=== PATIENT | male | born 1970 | race Caucasian/White ===

== ENCOUNTER 2017-04-14 22:27 | Inpatient (IN) | payer BC ==
[~2017-04-14] VITALS: Ht 167.6 cm; Wt 75.3 kg
[2017-04-14] MEDS ORDERED: AMIODARONE HCL IV 900 MG in IV DEXTROSE 5% 500 ML IV ONE (22:45)
[2017-04-14] MEDS ORDERED: AMIODARONE HCL IV 150 MG in IV DEXTROSE 5% 100 ML IV ONE (22:45)
[2017-04-14] MEDS ORDERED: NITROGLYCERIN OINT 1 GM PACKET TP ONE (22:45)
[2017-04-14] MEDS ORDERED: LORAZEPAM 2 MG/1 ML VIAL IV ONE (22:45)
[2017-04-14] MEDS ORDERED: NITROGLYCERIN 0.4 MG/TAB BOTTLE SL ONE (22:45)
[2017-04-14] MEDS ORDERED: ASPIRIN 81 MG TAB.CHEW PO ONE (22:45)
[2017-04-14] MEDS ORDERED: DILT180C66 PO (22:46)
[2017-04-14] MEDS ORDERED: OMEP20TA20 PO (22:46)
[2017-04-14] MEDS ORDERED: METO-302 PO (22:46)
[2017-04-14 22:53] LABS: BASOPHILS # (AUTO) 0.1 K/uL (0.0-8.0); BASOPHILS % (AUTO) 1.1 % (0.0-2.0); EOSINOPHILS # (AUTO) 0.3 K/uL (0.0-0.7); EOSINOPHILS % (AUTO) 3.4 % (0.0-7.0); HEMATOCRIT 46.3 % (40-50); HEMOGLOBIN 15.7 G/DL (14.0-18.0); LYMPHOCYTES # (AUTO) 3.3 K/UL (0.8-4.8); MEAN CORPUSCULAR HEMOGLOBIN 28.7 UUG (27.0-31.0); MEAN CORPUSCULAR HGB CONC 34 g/dL (32.0-37.0); MEAN CORPUSCULAR VOLUME 84.5 FL (82.0-92.0); MONOCYTES # (AUTO) 0.7 K/UL (0.1-1.30); MONOCYTES % (AUTO) 8.9 % (0.0-11.0); NEUTROPHILS # (AUTO) 3.3 K/UL (1.8-8.9); NEUTROPHILS % (AUTO) 42.6 % (38.5-71.5); PLATELET COUNT (AUTO) 237 K/UL (150-450); RED BLOOD CELL COUNT(AUTO) 5.48 MIL/UL (4.7-6.1); WHITE BLOOD COUNT (AUTO) 7.7 K/UL (4.0-11.2)
[2017-04-14 22:56] LABS: CREATININE 1.5 mg/dL (0.6-1.3)
[2017-04-14] MEDS ORDERED: ASPIRIN 81 MG TAB.CHEW ONE (22:56)
[2017-04-14] MEDS ORDERED: AMIODARONE HCL 150 MG/3 ML VIAL IV ONE ×2 (22:56→23:17)
[2017-04-14] MEDS ORDERED: LORAZEPAM 2 MG/1 ML VIAL ONE (22:57)
[2017-04-14 23:08] LABS: BILIRUBIN,DIRECT 0.2 mg/dL (0.0-0.2); BILIRUBIN,TOTAL 1.5 mg/dL (0.2-1.0); TOTAL PROTEIN, SERUM 7.3 g/dL (6.4-8.2)
[2017-04-14] MEDS ORDERED: IV NORMAL SALINE 500 ML IV ONE (23:14)
--- NOTE | 2017-04-14 23:18 | NUR ---
Patient in restroom accompanied by . patient educated on risks of ambulating to the restroom for bowel movement at this time, in his current condition. patient states he will go to the bathroom for bowel movement even if it is not advised.
--- NOTE | 2017-04-14 23:46 | NUR ---
Pt. admitted to [facility] , under care of Dr. Flores. Dx: A-Fib with RVR. Report given to Marta RN @ 2340. Room 216 assigned @ 2340. Belongs List completed
[2017-04-15] VITALS: BP 104/63
--- NOTE | 2017-04-15 00:10 | NUR ---
nsg: pt received a/o x 4 fr er with dx of afib with rapid ventricular rate. receiving amiodarone drip 1mg/min per unit protocol. v/s stable. denies chest discomfort. at the bedside.
[2017-04-15] MEDS ORDERED: HYDROCODONE/APAP 5-325MG TABLET PO PRN (00:30)
[2017-04-15] MEDS ORDERED: ACETAMINOPHEN 325 MG TABLET PO PRN (00:30)
[2017-04-15] MEDS ORDERED: ONDANSETRON 4 MG/2 ML VIAL IV PRN (00:30)
[2017-04-15] MEDS ORDERED: ZOLPIDEM 5 MG TABLET PO PRN (00:30)
[2017-04-15] MEDS ORDERED: AMIODARONE HCL IV 900 MG in IV DEXTROSE 5% 482 ML IV PRN (00:30)
--- NOTE | 2017-04-15 01:00 | NUR ---
nsg: pt comfortable sleeping. no acute distress noted. cont to monitor. tele, afib with hr 110-113.
[2017-04-15 04:00] VITALS: BP 112/79
[2017-04-15] MEDS ORDERED: LORAZEPAM 2 MG/1 ML VIAL IV ONE (05:15)
--- NOTE | 2017-04-15 06:17 | NUR ---
nsg: pt awake, has severe anxiety, worried about his condition. medicated with ativan 1mg ivp x 1. v/s stable. tele, afib with hr 90's. cont to monitor.
[2017-04-15 06:29] LABS: BASOPHILS # (AUTO) 0.1 K/uL (0.0-8.0); BASOPHILS % (AUTO) 0.8 % (0.0-2.0); EOSINOPHILS # (AUTO) 0.3 K/uL (0.0-0.7); EOSINOPHILS % (AUTO) 3.6 % (0.0-7.0); HEMATOCRIT 44.8 % (40-50); HEMOGLOBIN 14.9 G/DL (14.0-18.0); LYMPHOCYTES # (AUTO) 2.4 K/UL (0.8-4.8); LYMPHOCYTES % (AUTO) 32.8 % (20.5-51.5); MEAN CORPUSCULAR HEMOGLOBIN 28.5 UUG (27.0-31.0); MEAN CORPUSCULAR HGB CONC 33 g/dL (32.0-37.0); MEAN CORPUSCULAR VOLUME 85.5 FL (82.0-92.0); MONOCYTES # (AUTO) 0.5 K/UL (0.1-1.30); MONOCYTES % (AUTO) 7.4 % (0.0-11.0); NEUTROPHILS # (AUTO) 4.1 K/UL (1.8-8.9); NEUTROPHILS % (AUTO) 55.4 % (38.5-71.5); PLATELET COUNT (AUTO) 242 K/UL (150-450); RED BLOOD CELL COUNT(AUTO) 5.24 MIL/UL (4.7-6.1); WHITE BLOOD COUNT (AUTO) 7.4 K/UL (4.0-11.2)
[2017-04-15] MEDS ORDERED: PANTOPRAZOLE SODIUM 40 MG TABLET.DR PO SCH (07:00)
[2017-04-15 07:07] LABS: THYROID STIMULATING HORMONE 2.803 mIU/mL (0.358-3.740)
[2017-04-15 07:11] LABS: BILIRUBIN,TOTAL 1.4 mg/dL (0.2-1.0); PHOSPHOROUS 3.4 mg/dL (2.5-4.9); POTASSIUM 3.8 mmol/L (3.5-5.1); TOTAL PROTEIN, SERUM 6.6 g/dL (6.4-8.2)
--- NOTE | 2017-04-15 07:15 | NUR ---
PATIENT NOTED RESTING IN BED WITH NO SIGNS OF DISTRESS OR PAIN. ON AMIODARONE DRIP FOR RVR, CONTROLLED AFIB AT A RATE OF 76-90/MIN ON MONITOR. CLOSELY MONITORED
[2017-04-15 08:09] VITALS: BP 111/68
[2017-04-15] MEDS ORDERED: METOPROLOL TARTRATE 25 MG TABLET PO SCH (09:00)
[2017-04-15] MEDS ORDERED: ENOXAPARIN SODIUM 80 MG/0.8 ML DISP.SYRIN SQ SCH (09:00)
[2017-04-15] MEDS ORDERED: DILTIAZEM HCL CD 180 MG CAP.SR.24H PO SCH (10:30)
[2017-04-15] MEDS ORDERED: POTASSIUM CHLORIDE 20 MEQ TAB.PRT.SR PO ONE (10:45)
[2017-04-15 11:23] VITALS: BP 129/85
--- NOTE | 2017-04-15 11:41 | NUR ---
PT RESTING IN BED. DENIES ANY CHEST PAIN, NO SIGNS OF RESPIRATORY DISTRESS, ON ROOM AIR. CONTINUE ON AMIODARONE DRIP PER PROTOCOL. K- DUR AND LOPRESSOR ORDER FROM DR. ANDERSON GIVEN. PATIENT REMAINS A FIB CONTROLLED AND UNCONTROLLED FROM 80 TO 116.
--- NOTE | 2017-04-15 15:30 | NUR ---
SEEN BY DR. ANDERSON SPOKE WITH PT'S [employer] OFFICER FROM [facility] SEE NOTES. PT REMAINED CONTROLLED A. FIB ON AMIODARONE IV DRIP.
[2017-04-15 16:17] VITALS: BP 110/72
--- NOTE | 2017-04-15 17:10 | NUR ---
TRIED TO REACH DR. REYES ABOUT PT STATUS AND SAID DR. WELLER WILL BE MAKING ROUNDS SOON POSSIBLE. PT NOW IN SINUS RHYTHM AT A RATE OF 80 TO 85 CONTINUE WITH AMIODARONE DRIP PER DR. REYES AND PT REMAINS ASYMPTOMATIC.
[2017-04-15] MEDS ORDERED: ATOR20TA PO (18:31)
--- NOTE | 2017-04-15 19:30 | NUR ---
PT RECEIVED IN BED, AWAKE. A/OX4. ABLE TO MAKE NEEDS KNOWN. V/S STABLE. IN NO ACUTE DISTRESS. NO C/O PAIN. CONT ON TELE. PT WAITING TO TALK TO AND READY FOR D/C. SAFETY MEASURES IMPLEMENTED. CALL LIGHT WITHIN REACH.
--- NOTE | 2017-04-15 20:00 | NUR ---
PT READY FOR DISCHARGE. D/C PAPERWORK SIGNED. BELONGINGS LIST SIGNED. IV D/C. PT IN STABLE CONDITION.
[2017-04-15] MEDS ORDERED: ATORVASTATIN 20 MG TABLET PO SCH (21:00)
== END 2017-04-15 20:07 | disposition home or self-care (01) | DRG 308 ==
LOC: ER 22:28 → DOU 23:44 → TELE-TD 04-15 00:02
PROVIDERS: ADMIT Internal Medicine; ATTEND Internal Medicine
DX: I48.91 Unspecified atrial fibrillation (principal); N17.0 Acute kidney failure with tubular necrosis; E78.5 Hyperlipidemia, unspecified; G47.33 Obstructive sleep apnea (adult) (pediatric); I48.0 Paroxysmal atrial fibrillation; K21.9 Gastro-esophageal reflux disease without esophagitis; F41.9 Anxiety disorder, unspecified; I34.1 Nonrheumatic mitral (valve) prolapse; E80.4 Gilbert syndrome; Z88.0 Allergy status to penicillin
CPT/HCPCS: 36415; 70030-TC; 71010; 83735; 84100; 84443; 85025; 85730; 93005; 93307; A4663; J0282; J1650; J2060; J7060

== ENCOUNTER 2020-05-09 05:54 | Emergency (ER) | payer BC ==
[~2020-05-09] VITALS: Ht 167.6 cm; Wt 73.0 kg
[~2020-05-09 05:54] MED LIST: ATOR20TA PO; DILT180C66 PO; METO-356 PO; OMEP20TA20 PO
[2020-05-09] MEDS ORDERED: ROSU10TA2 PO (06:01)
[2020-05-09] MEDS ORDERED: ALPR0.5T PO (06:01)
--- NOTE | 2020-05-09 06:05 | NUR ---
Patient walked into ER c/o palpiation that started about 1hr TAPE SEWER. Patient states he got up to use restroom when palpitation started. Denies CP,SOB. Patient took xanax TAPE SEWER for anxiety.
[2020-05-09] MEDS: DILTIAZEM HCL 25 MG IV IV ONE (06:18)
[2020-05-09] MEDS ORDERED: DILTIAZEM HCL 25 MG IV ONE (06:19)
[2020-05-09] MEDS: IV NORMAL SALINE 1000 ML BAG IV ONE (06:20)
[2020-05-09 06:35] LABS: BASOPHILS # (AUTO) 0.1 K/uL (0.0-8.0); BASOPHILS % (AUTO) 0.9 % (0.0-2.0); EOSINOPHILS # (AUTO) 0.3 K/uL (0.0-0.7); HEMATOCRIT 45.2 % (36.7-47.1); HEMOGLOBIN 15.7 g/dL (12.5-16.3); LYMPHOCYTES # (AUTO) 2.2 K/uL (20.0-40.0); LYMPHOCYTES % (AUTO) 32.5 % (20.5-51.5); MEAN CORPUSCULAR HEMOGLOBIN 29.6 uug (23.8-33.4); MEAN CORPUSCULAR HGB CONC 35 g/dL (32.5-36.3); MEAN CORPUSCULAR VOLUME 85.2 fL (73.0-96.2); MONOCYTES # (AUTO) 0.6 K/uL (2.0-10.0); MONOCYTES % (AUTO) 8.6 % (0.0-11.0); NEUTROPHILS # (AUTO) 3.5 K/uL (1.8-8.9); PLATELET COUNT (AUTO) 251 K/uL (152-348); RED BLOOD CELL COUNT(AUTO) 5.31 MIL/uL (4.06-5.63); WHITE BLOOD COUNT (AUTO) 6.7 K/uL (3.6-10.2)
[2020-05-09 06:42] LABS: CREATININE 1.3 mg/dL (0.6-1.3); POTASSIUM 3.5 mmol/L (3.5-5.1)
[2020-05-09 06:53] VITALS: BP 123/73
[2020-05-09] MEDS: ASPIRIN 325 MG TABLET PO ONE (06:53)
[2020-05-09] MEDS: DILTIAZEM HCL 60 MG TABLET PO ONE (06:53)
[2020-05-09] MEDS ORDERED: ASPIRIN 325 MG TABLET ONE (06:53)
[2020-05-09] MEDS ORDERED: DILTIAZEM HCL 60 MG TABLET ONE (06:54)
[2020-05-09 06:55] LABS: BILIRUBIN,DIRECT 0.3 mg/dL (0.0-0.2); BILIRUBIN,TOTAL 1.4 mg/dL (0.2-1.0); TOTAL PROTEIN, SERUM 7.1 g/dL (6.4-8.2)
[2020-05-09 07:06] LABS: *BILIRUBIN,URIN NEGATIVE (NEGATIVE); *BLOOD, URINE TRACE (NEGATIVE); *CLARITY,URINE CLEAR (CLEAR); *COLOR,URINE YELLOW (YELLOW); *KETONES,URINE NEGATIVE (NEGATIVE); *UROBILINOGEN,URINE 0.2 E.U./dl (NORMAL); LEUKOCYTE ESTERASE ,URINE NEGATIVE (NEGATIVE); NITRITE, URINE NEGATIVE (NEGATIVE); PH,URINE 5.5 (5.0-8.0); UGLUCOSE NEGATIVE (NEGATIVE)
[2020-05-09 07:11] LABS: THYROID STIMULATING HORMONE 2.927 mIU/mL (0.358-3.740)
[2020-05-09 07:14] LABS: PHOSPHOROUS 2.7 mg/dL (2.5-4.9)
[2020-05-09 07:14] LABS: *AMPHETAMINE, URINE NEGATIVE (NEGATIVE); *BARBITURATE, URINE NEGATIVE (NEGATIVE); *CANNABINOID, URINE NEGATIVE (NEGATIVE); *COCCAINE, URINE NEGATIVE (NEGATIVE); *OPIATE, URINE NEGATIVE (NEGATIVE); *PHENCYCLIDINE SCREEN,URINE NEGATIVE (NEGATIVE)
[2020-05-09 07:15] LABS: ETHANOL < 3 MG/DL (0-0); MAGNESIUM 2.2 mg/dL (1.8-2.4)
[2020-05-09] MEDS: ONDANSETRON 4 MG/2 ML VIAL IV ONE (07:48)
[2020-05-09] MEDS ORDERED: ONDANSETRON 4 MG/2 ML VIAL ONE (07:49)
[2020-05-09] MEDS ORDERED: LORAZEPAM 2 MG/1 ML VIAL ONE (07:50)
[2020-05-09] MEDS: LORAZEPAM 2 MG/1 ML VIAL IV ONE (07:51)
--- NOTE | 2020-05-09 08:10 | NUR ---
Pt resting with NAD noted. Called tele floor for bed assignement, [facility] called for admission.
[2020-05-09] MEDS ORDERED: IV NS 1000 ML 1,000 ML IV PRN (08:35)
[2020-05-09 08:38] LABS: RBC,URINE 0-3 /HPF (0-3); WBC,URINE 0-3 /HPF (0-3)
[2020-05-09 08:39] LABS: BACTERIA,URINE NONE SEEN /HPF (NONE SEEN); SQUAMOUS EPITHELIAL CELL,UR NONE SEEN /HPF (NONE SEEN)
[2020-05-09] MEDS ORDERED: ONDANSETRON 4 MG/2 ML VIAL IV PRN (08:45)
[2020-05-09] MEDS ORDERED: MAG HYDROX/AL HYDROX/SIMETH 30 ML LIQUID UDC PO PRN (08:45)
[2020-05-09] MEDS ORDERED: MORPHINE SULFATE 2 MG/1 ML DISP.SYRIN IV PRN (08:45)
[2020-05-09] MEDS ORDERED: ACETAMINOPHEN 325 MG TABLET PO PRN (08:45)
[2020-05-09] MEDS ORDERED: ALPRAZOLAM 0.5 MG TABLET PO SCH (08:45)
[2020-05-09] MEDS ORDERED: DOCUSATE SODIUM 100 MG CAPSULE PO PRN (08:45)
[2020-05-09] MEDS ORDERED: NITROGLYCERIN OINT 1 GM PACKET TP PRN (08:45)
[2020-05-09] MEDS ORDERED: ASPIRIN 81 MG TAB.CHEW PO SCH (09:00)
--- NOTE | 2020-05-09 09:20 | NUR ---
Pt states he is concerned about his insurance coverage, pt spoke with ER admitting rep. Pt states he wants to call and speak with his insurance before being transfered to tele floor.
--- NOTE | 2020-05-09 10:00 | NUR ---
Pt states he is still in the process of deciding if he wants to be admitted here or sign out AMA. NAD noted.
--- NOTE | 2020-05-09 10:30 | NUR ---
ER admitting Rep spoke with pt again to clearify his coverage, pt states he still needs a few mins to decide.
--- NOTE | 2020-05-09 10:59 | NUR ---
GLEN WELLER MD AT BEDSIDE SPEAKING WITH THE PT.
--- NOTE | 2020-05-09 11:22 | NUR ---
IV removed. Catheter intact and site benign. Pressure and 4x4 gauze applied to site. No bleeding noted.
--- NOTE | 2020-05-09 11:25 | NUR ---
Patient does not wish to proceed with medical care recommended by and Dr. Thibodeaux. Patient given information related to possible complications, up to and including , which could occur as a result of leaving the hospital at this time. Patient verbalizes understanding of risks involved due to leaving against medical advice. Patient has signed AMA form.
[2020-05-09] MEDS ORDERED: Medication Not On Formulary EA (Rosuvastatin Calcium (Crestor) 10 MG) PO SCH (21:00)
[2020-05-10] MEDS ORDERED: DILTIAZEM HCL 90 MG TABLET PO SCH (09:00)
== END 2020-05-09 11:28 | disposition left against medical advice (07) ==
LOC: ER 05:57
DX: I48.0 Paroxysmal atrial fibrillation (principal); F41.9 Anxiety disorder, unspecified; K21.9 Gastro-esophageal reflux disease without esophagitis; Z88.0 Allergy status to penicillin; G47.30 Sleep apnea, unspecified; Z79.899 Other long term (current) drug therapy; E80.6 Other disorders of bilirubin metabolism; Z20.828 Contact with and (suspected) exposure to other viral communicable diseases
CPT/HCPCS: 36415; 71045; 80048; 80076; 80307 ×2; 81001; 83735; 83880; 84100; 84443; 84484; 85025; 85730; 87426; 93005 ×2; 96361; 96374; 96375; 99291; J2060; J2405; J3490; 70030-TC; A4663; J7030